=== PATIENT | male | born 1950 | race Caucasian/White ===

== ENCOUNTER → 2018-04-28 20:28 | Outpatient (CLI) | payer MEDICARE, OTHER, SELFPAY ==
[2018-04-29 08:21] LABS: Influenza A and B by PCR Rapid Negative (Negative)
== END ==
PROVIDERS: Family Provider Family Medicine; PCP Family Medicine; Visit Provider Physician Assistant
DX: R68.89 Other general symptoms and signs (principal)
CPT/HCPCS: 87400

== ENCOUNTER → 2018-05-01 09:00 | Outpatient (CLI) | payer MEDICARE, OTHER, SELFPAY ==
[2018-05-01 10:32] LABS: Microalbumi Creatinin Ratio Ur 8.4 ug/mg CR (<30); Microalbumin Urine Random < 0.6 mg/dL (0-1.6)
[2018-05-01 11:01] LABS: Hemoglobin A1C% w Est Avg Glu 7.8 % (4.0-6.0)
[2018-05-01 11:31] LABS: Alanine Aminotransferase 111 IU/L (21-72); Albumin 3.7 g/dL (3.5-5.0); Albumin Globulin Ratio 1.4 (1.0-2.8); Alkaline Phosphatase 85 U/L (38-126); Aspartate Aminotransferase 97 IU/L (17-59); BUN Creatinine Ratio 17.8 (6-22); Bilirubin Total 0.7 mg/dL (0.2-1.3); Blood Urea Nitrogen 16 mg/dL (9-20); Carbon Dioxide 31 mmol/L (22-32); Chloride 101 mmol/L (98-107); Cholesterol 91 mg/dL (140-199); Estimated Glomerular Filt Rate > 60.0 mL/min (>60); Globulin 2.6 g/dL (1.7-4.1); Glucose 150 mg/dL (80-110); HDL Cholesterol 24 mg/dL (40-60); HEMOLYSIS < 15 (0-50); LDL Cholesterol Calculated 43 mg/dL (<100); Potassium 4.5 mmol/L (3.4-5.1); Sodium 141 mmol/L (137-145); Total Protein 6.3 g/dL (6.3-8.2); Triglycerides 121 mg/dL (35-150)
== END ==
PROVIDERS: Visit Provider Internal Medicine Endocrinology, Diabetes & Metabolism
DX: M79.672 Pain in left foot (principal); I10 Essential (primary) hypertension; E78.2 Mixed hyperlipidemia; E11.9 Type 2 diabetes mellitus without complications; R94.5 Abnormal results of liver function studies
CPT/HCPCS: 36415; 80053; 80061; 82043; 82570; 83036

== ENCOUNTER → 2018-05-31 09:13 | Outpatient (CLI) | payer MEDICARE, OTHER, SELFPAY ==
[2018-05-31 10:13] LABS: Alanine Aminotransferase 34 IU/L (21-72); Albumin 4.1 g/dL (3.5-5.0); Albumin Globulin Ratio 1.6 (1.0-2.8); Alkaline Phosphatase 65 U/L (38-126); Aspartate Aminotransferase 28 IU/L (17-59); Bilirubin Total 0.6 mg/dL (0.2-1.3); Bilirubin Unconjugated 0.5 mg/dL (0.0-1.1); Estimated Glomerular Filt Rate > 60.0 mL/min (>60); Globulin 2.5 g/dL (1.7-4.1); HEMOLYSIS < 15 (0-50); Total Protein 6.6 g/dL (6.3-8.2)
== END ==
PROVIDERS: Visit Provider Internal Medicine Endocrinology, Diabetes & Metabolism
DX: I10 Essential (primary) hypertension (principal); R94.5 Abnormal results of liver function studies
CPT/HCPCS: 36415; 80076; 82565

== ENCOUNTER → 2018-08-24 09:15 | Outpatient (CLI) | payer MEDICARE, OTHER, SELFPAY ==
[2018-08-24 10:04] LABS: Hemoglobin A1C% w Est Avg Glu 7.1 % (4.0-6.0)
[2018-08-24 10:23] LABS: Alanine Aminotransferase 45 IU/L (21-72); Albumin 4.3 g/dL (3.5-5.0); Albumin Globulin Ratio 1.4 (1.0-2.8); Alkaline Phosphatase 64 U/L (38-126); Aspartate Aminotransferase 32 IU/L (17-59); Bilirubin Total 0.7 mg/dL (0.2-1.3); Blood Urea Nitrogen 21 mg/dL (9-20); Calcium 9.6 mg/dL (8.4-10.2); Carbon Dioxide 29 mmol/L (22-32); Chloride 102 mmol/L (98-107); Cholesterol 117 mg/dL (140-199); Estimated Glomerular Filt Rate > 60.0 mL/min (>60); Glucose 133 mg/dL (80-110); HDL Cholesterol 30 mg/dL (40-60); HEMOLYSIS < 15 (0-50); LDL Cholesterol Calculated 70 mg/dL (<100); Potassium 4.5 mmol/L (3.4-5.1); Sodium 140 mmol/L (137-145); Total Protein 7.3 g/dL (6.3-8.2); Triglycerides 84 mg/dL (35-150)
[2018-08-24 11:28] LABS: Microalbumi Creatinin Ratio Ur 5.4 ug/mg CR (<30); Microalbumin Urine Random < 0.6 mg/dL (0-1.6)
== END ==
PROVIDERS: PCP Student in an Organized Health Care Education/Training Program; Visit Provider Internal Medicine Endocrinology, Diabetes & Metabolism
DX: I10 Essential (primary) hypertension (principal); E78.2 Mixed hyperlipidemia; E11.9 Type 2 diabetes mellitus without complications; E88.81 Metabolic syndrome and other insulin resistance; R94.5 Abnormal results of liver function studies
CPT/HCPCS: 36415; 80053; 80061; 82043; 82570; 83036

== ENCOUNTER → 2018-12-27 08:58 | Outpatient (CLI) | payer MEDICARE, OTHER, SELFPAY ==
[2018-12-27 10:35] LABS: Creatinine Urine Random 117.6 mg/dL
[2018-12-27 10:39] LABS: Microalbumi Creatinin Ratio Ur 5.1 ug/mg CR (<30); Microalbumin Urine Random < 0.6 mg/dL (0-1.6)
[2018-12-27 11:21] LABS: Alanine Aminotransferase 26 IU/L (21-72); Albumin Globulin Ratio 1.4 (1.0-2.8); Alkaline Phosphatase 75 U/L (38-126); Aspartate Aminotransferase 24 IU/L (17-59); BUN Creatinine Ratio 25.6 (6-22); Bilirubin Total 0.7 mg/dL (0.2-1.3); Blood Urea Nitrogen 23 mg/dL (9-20); Calcium 9.3 mg/dL (8.4-10.2); Carbon Dioxide 28 mmol/L (22-32); Chloride 103 mmol/L (98-107); Cholesterol 115 mg/dL (140-199); Estimated Glomerular Filt Rate > 60.0 mL/min (>60); Globulin 2.9 g/dL (1.7-4.1); Glucose 125 mg/dL (80-110); HDL Cholesterol 27 mg/dL (40-60); HEMOLYSIS < 15 (0-50); LDL Cholesterol Calculated 66 mg/dL (<100); Potassium 4.5 mmol/L (3.4-5.1); Sodium 139 mmol/L (137-145); Total Protein 6.9 g/dL (6.3-8.2); Triglycerides 111 mg/dL (35-150)
[2018-12-27 11:22] LABS: Hemoglobin A1C% w Est Avg Glu 6.7 % (4.0-6.0)
== END ==
PROVIDERS: PCP Student in an Organized Health Care Education/Training Program; Visit Provider Internal Medicine Endocrinology, Diabetes & Metabolism
DX: I10 Essential (primary) hypertension (principal); E88.81 Metabolic syndrome and other insulin resistance; E11.9 Type 2 diabetes mellitus without complications; E78.2 Mixed hyperlipidemia
CPT/HCPCS: 36415; 80053; 80061; 82043; 82570; 83036

== ENCOUNTER → 2019-04-17 09:00 | Outpatient (CLI) | payer MEDICARE, OTHER, SELFPAY ==
[2019-04-17 09:54] LABS: Hemoglobin A1C% w Est Avg Glu 6.8 % (4.0-6.0)
[2019-04-17 10:51] LABS: Appearance Urine UA CLEAR; Bilirubin Urine UA NEGATIVE (NEGATIVE); Color Urine UA YELLOW; Glucose Urine UA 3+ g/dL (Negative); Ketones Urine UA NEGATIVE (NEGATIVE); Leukocyte Esterase Urine UA NEGATIVE (NEGATIVE); Nitrite Urine UA NEGATIVE (Negative); Occult Blood Urine UA NEGATIVE (Negative); Protein Urine UA NEGATIVE (Negative); Specific Gravity Urine UA 1.015 (1.000-1.035); Urobilinogen Urine UA 0.2 E.U./dL (0.2)
[2019-04-17 10:55] LABS: Alanine Aminotransferase 40 IU/L (21-72); Albumin Globulin Ratio 1.6 (1.0-2.8); Alkaline Phosphatase 80 U/L (38-126); Aspartate Aminotransferase 31 IU/L (17-59); Bilirubin Total 0.7 mg/dL (0.2-1.3); Blood Urea Nitrogen 19 mg/dL (9-20); Calcium 9.5 mg/dL (8.4-10.2); Carbon Dioxide 29 mmol/L (22-32); Chloride 101 mmol/L (98-107); Cholesterol 104 mg/dL (140-199); Estimated Glomerular Filt Rate > 60.0 mL/min (>60); Globulin 2.5 g/dL (1.7-4.1); Glucose 139 mg/dL (80-110); HDL Cholesterol 27 mg/dL (40-60); HEMOLYSIS < 15 (0-50); LDL Cholesterol Calculated 61 mg/dL (<100); Potassium 4.2 mmol/L (3.4-5.1); Sodium 138 mmol/L (137-145); Total Protein 6.5 g/dL (6.3-8.2); Triglycerides 82 mg/dL (35-150); VLDL Cholesterol Calculated 16 mg/dL (2-30)
[2019-04-17 11:19] LABS: Bacteria Urine Few (2-10); RBC Urine 0-1/HPF (0-5/HPF); WBC Urine 0-1/HPF (0-5/HPF)
== END ==
PROVIDERS: PCP Student in an Organized Health Care Education/Training Program; Visit Provider Internal Medicine Endocrinology, Diabetes & Metabolism
DX: I10 Essential (primary) hypertension (principal); E11.9 Type 2 diabetes mellitus without complications
CPT/HCPCS: 36415; 80053; 80061; 81001; 83036

== ENCOUNTER → 2019-08-16 10:43 | Outpatient (CLI) | payer MEDICARE, OTHER, SELFPAY ==
[2019-08-16 13:10] LABS: Prostate Specific Antigen Scrn 3.04 ng/mL (0.1-4.0)
== END ==
PROVIDERS: PCP Student in an Organized Health Care Education/Training Program; Visit Provider Student in an Organized Health Care Education/Training Program
DX: Z12.5 Encounter for screening for malignant neoplasm of prostate (principal)
CPT/HCPCS: 36415; G0103

== ENCOUNTER → 2019-08-20 09:16 | Outpatient (CLI) | payer MEDICARE, OTHER, SELFPAY ==
[2019-08-20 10:30] LABS: Hemoglobin A1C% w Est Avg Glu 7.4 % (4.0-6.0)
[2019-08-20 10:38] LABS: Alanine Aminotransferase 29 IU/L (<50); Albumin 4.3 g/dL (3.5-5.0); Albumin Globulin Ratio 1.4 (1.0-2.8); Alkaline Phosphatase 77 U/L (38-126); Aspartate Aminotransferase 31 IU/L (17-59); Bilirubin Total 0.7 mg/dL (0.2-1.3); Blood Urea Nitrogen 18 mg/dL (9-20); Calcium 9.6 mg/dL (8.4-10.2); Carbon Dioxide 30 mmol/L (22-32); Chloride 102 mmol/L (98-107); Cholesterol 121 mg/dL (140-199); Estimated Glomerular Filt Rate > 60.0 mL/min (>60); Glucose 137 mg/dL (80-110); HDL Cholesterol 25 mg/dL (40-60); HEMOLYSIS < 15 (0-50); LDL Cholesterol Calculated 71 mg/dL (<100); Potassium 4.6 mmol/L (3.4-5.1); Sodium 140 mmol/L (137-145); Total Protein 7.3 g/dL (6.3-8.2); Triglycerides 124 mg/dL (35-150)
[2019-08-20 11:27] LABS: Creatinine Urine Random 42.6 mg/dL
[2019-08-20 11:40] LABS: Microalbumin Urine Random < 0.6 mg/dL (0-1.6)
== END ==
PROVIDERS: PCP Student in an Organized Health Care Education/Training Program; Referring Provider Internal Medicine Endocrinology, Diabetes & Metabolism; Visit Provider Internal Medicine Endocrinology, Diabetes & Metabolism
DX: I10 Essential (primary) hypertension (principal); E78.2 Mixed hyperlipidemia; E11.9 Type 2 diabetes mellitus without complications; E88.81 Metabolic syndrome and other insulin resistance; R94.5 Abnormal results of liver function studies
CPT/HCPCS: 36415; 80053; 80061; 82043; 82570; 83036

== ENCOUNTER → 2019-12-24 09:36 | Outpatient (CLI) | payer MEDICARE, OTHER, SELFPAY ==
[2019-12-24 11:05] LABS: Alanine Aminotransferase 32 IU/L (<50); Albumin 4.2 g/dL (3.5-5.0); Albumin Globulin Ratio 1.4 (1.0-2.8); Alkaline Phosphatase 86 U/L (38-126); Aspartate Aminotransferase 29 IU/L (17-59); BUN Creatinine Ratio 20.2 (6-22); Bilirubin Total 0.6 mg/dL (0.2-1.3); Blood Urea Nitrogen 20 mg/dL (9-20); Calcium 9.6 mg/dL (8.4-10.2); Carbon Dioxide 28 mmol/L (22-32); Chloride 104 mmol/L (98-107); Cholesterol 110 mg/dL (140-199); Estimated Glomerular Filt Rate > 60.0 mL/min (>60); Globulin 2.9 g/dL (1.7-4.1); Glucose 142 mg/dL (80-110); HDL Cholesterol 23 mg/dL (40-60); HEMOLYSIS < 15 (0-50); LDL Cholesterol Calculated 61 mg/dL (<100); Potassium 4.7 mmol/L (3.4-5.1); Sodium 139 mmol/L (137-145); Total Protein 7.1 g/dL (6.3-8.2); Triglycerides 129 mg/dL (35-150); VLDL Cholesterol Calculated 26 mg/dL (2-30)
[2019-12-24 11:10] LABS: Creatinine Urine Random 103.4 mg/dL
[2019-12-24 11:17] LABS: Microalbumi Creatinin Ratio Ur 5.8 ug/mg CR (<30); Microalbumin Urine Random < 0.6 mg/dL (0-1.6)
[2019-12-24 11:18] LABS: Hemoglobin A1C% w Est Avg Glu 7.5 % (4.0-6.0)
== END ==
PROVIDERS: PCP Student in an Organized Health Care Education/Training Program; Referring Provider Internal Medicine Endocrinology, Diabetes & Metabolism; Visit Provider Internal Medicine Endocrinology, Diabetes & Metabolism
DX: I10 Essential (primary) hypertension (principal); E78.2 Mixed hyperlipidemia; E11.9 Type 2 diabetes mellitus without complications; E88.81 Metabolic syndrome and other insulin resistance; R94.5 Abnormal results of liver function studies
CPT/HCPCS: 36415; 80053; 80061; 82043; 82570; 83036

== ENCOUNTER → 2020-04-28 09:04 | Outpatient (CLI) | payer MEDICARE, OTHER, SELFPAY ==
[2020-04-28 09:49] LABS: Hemoglobin A1C% w Est Avg Glu 7.2 % (4.0-6.0)
[2020-04-28 09:53] LABS: Alanine Aminotransferase 32 IU/L (<50); Albumin Globulin Ratio 1.5 (1.0-2.8); Alkaline Phosphatase 79 U/L (38-126); Aspartate Aminotransferase 29 IU/L (17-59); BUN Creatinine Ratio 22.2 (6-22); Bilirubin Total 0.7 mg/dL (0.2-1.3); Blood Urea Nitrogen 22 mg/dL (9-20); Calcium 9.4 mg/dL (8.4-10.2); Carbon Dioxide 31 mmol/L (22-32); Chloride 103 mmol/L (98-107); Cholesterol 116 mg/dL (140-199); Estimated Glomerular Filt Rate > 60.0 mL/min (>60); Globulin 2.7 g/dL (1.7-4.1); Glucose 133 mg/dL (80-110); HDL Cholesterol 30 mg/dL (40-60); HEMOLYSIS < 15 (0-50); LDL Cholesterol Calculated 61 mg/dL (<100); Potassium 4.8 mmol/L (3.4-5.1); Sodium 139 mmol/L (137-145); Total Protein 6.7 g/dL (6.3-8.2); Triglycerides 124 mg/dL (35-150)
[2020-04-28 10:53] LABS: Creatinine Urine Random 74.7 mg/dL
[2020-04-28 11:04] LABS: Microalbumin Urine Random < 0.6 mg/dL (0-1.6)
== END ==
PROVIDERS: PCP Student in an Organized Health Care Education/Training Program; Referring Provider Internal Medicine Endocrinology, Diabetes & Metabolism; Visit Provider Internal Medicine Endocrinology, Diabetes & Metabolism
DX: E11.9 Type 2 diabetes mellitus without complications (principal); E78.2 Mixed hyperlipidemia; I10 Essential (primary) hypertension
CPT/HCPCS: 36415; 80053; 80061; 82043; 82570; 83036

== ENCOUNTER → 2020-09-02 09:26 | Outpatient (CLI) | payer MEDICARE, OTHER, SELFPAY ==
[2020-09-02 10:17] LABS: Hemoglobin A1C% w Est Avg Glu 7.6 % (4.0-6.0)
[2020-09-02 10:57] LABS: Creatinine Urine Random 74.1 mg/dL
[2020-09-02 11:01] LABS: Microalbumin Urine Random < 0.6 mg/dL (0-1.6)
[2020-09-02 11:03] LABS: Alanine Aminotransferase 32 IU/L (<50); Albumin Globulin Ratio 1.4 (1.0-2.8); Alkaline Phosphatase 84 U/L (38-126); Aspartate Aminotransferase 29 IU/L (17-59); BUN Creatinine Ratio 20.6 (6-22); Bilirubin Total 0.5 mg/dL (0.2-1.3); Blood Urea Nitrogen 20 mg/dL (9-20); Calcium 9.2 mg/dL (8.4-10.2); Carbon Dioxide 30 mmol/L (22-32); Chloride 103 mmol/L (98-107); Cholesterol 117 mg/dL (140-199); Estimated Glomerular Filt Rate > 60.0 mL/min (>60); Globulin 2.8 g/dL (1.7-4.1); Glucose 145 mg/dL (80-110); HDL Cholesterol 29 mg/dL (40-60); HEMOLYSIS < 15 (0-50); LDL Cholesterol Calculated 68 mg/dL (<100); Potassium 4.5 mmol/L (3.4-5.1); Sodium 138 mmol/L (137-145); Total Protein 6.8 g/dL (6.3-8.2); Triglycerides 102 mg/dL (35-150)
== END ==
PROVIDERS: PCP Student in an Organized Health Care Education/Training Program; Referring Provider Internal Medicine Endocrinology, Diabetes & Metabolism; Visit Provider Internal Medicine Endocrinology, Diabetes & Metabolism
DX: I10 Essential (primary) hypertension (principal); E78.2 Mixed hyperlipidemia; E88.81 Metabolic syndrome and other insulin resistance; R94.5 Abnormal results of liver function studies; E11.40 Type 2 diabetes mellitus with diabetic neuropathy, unspecified
CPT/HCPCS: 36415; 80053; 80061; 82043; 82570; 83036

== ENCOUNTER → 2020-12-29 09:28 | Outpatient (CLI) | payer MEDICARE, OTHER, SELFPAY ==
[2020-12-29 11:24] LABS: Hemoglobin A1C% w Est Avg Glu 6.9 % (4.0-6.0)
[2020-12-29 11:46] LABS: Alanine Aminotransferase 32 IU/L (<50); Albumin 3.7 g/dL (3.5-5.0); Albumin Globulin Ratio 1.4 (1.0-2.8); Alkaline Phosphatase 79 U/L (38-126); Aspartate Aminotransferase 28 IU/L (17-59); BUN Creatinine Ratio 20.6 (6-22); Bilirubin Total 0.6 mg/dL (0.2-1.3); Blood Urea Nitrogen 20 mg/dL (9-20); Calcium 9.4 mg/dL (8.4-10.2); Carbon Dioxide 26 mmol/L (22-32); Chloride 103 mmol/L (98-107); Cholesterol 119 mg/dL (140-199); Estimated Glomerular Filt Rate > 60.0 mL/min (>60); Globulin 2.7 g/dL (1.7-4.1); Glucose 106 mg/dL (80-110); HDL Cholesterol 27 mg/dL (40-60); HEMOLYSIS < 15 (0-50); LDL Cholesterol Calculated 62 mg/dL (<100); Potassium 4.4 mmol/L (3.4-5.1); Sodium 137 mmol/L (137-145); Total Protein 6.4 g/dL (6.3-8.2); Triglycerides 152 mg/dL (35-150); VLDL Cholesterol Calculated 30 mg/dL (2-30)
[2020-12-29 11:50] LABS: Creatinine Urine Random 81.8 mg/dL
[2020-12-29 12:05] LABS: Microalbumin Urine Random < 0.6 mg/dL (0-1.6)
== END ==
PROVIDERS: PCP Student in an Organized Health Care Education/Training Program; Referring Provider Internal Medicine Endocrinology, Diabetes & Metabolism; Visit Provider Internal Medicine Endocrinology, Diabetes & Metabolism
DX: E78.2 Mixed hyperlipidemia (principal); E11.40 Type 2 diabetes mellitus with diabetic neuropathy, unspecified; I11.0 Hypertensive heart disease with heart failure; E88.81 Metabolic syndrome and other insulin resistance; R94.5 Abnormal results of liver function studies
CPT/HCPCS: 36415; 80053; 80061; 82043; 82570; 83036

== ENCOUNTER → 2021-01-14 13:56 | Outpatient (CLI) | payer MEDICARE, OTHER, SELFPAY ==
[2021-01-14 16:45] LABS: Prostate Specific Antigen Scrn 2.43 ng/mL (0.1-4.0)
== END ==
PROVIDERS: PCP Student in an Organized Health Care Education/Training Program; Referring Provider Student in an Organized Health Care Education/Training Program; Visit Provider Student in an Organized Health Care Education/Training Program
DX: Z12.5 Encounter for screening for malignant neoplasm of prostate (principal)
CPT/HCPCS: 36415; G0103

== ENCOUNTER → 2021-05-12 09:18 | Outpatient (CLI) | payer MEDICARE, OTHER, SELFPAY ==
[2021-05-12 10:05] LABS: Hemoglobin A1C% w Est Avg Glu 6.4 % (4.0-6.0)
[2021-05-12 10:18] LABS: Alanine Aminotransferase 34 IU/L (<50); Albumin Globulin Ratio 1.6 (1.0-2.8); Alkaline Phosphatase 73 U/L (38-126); Aspartate Aminotransferase 30 IU/L (17-59); BUN Creatinine Ratio 18.6 (6-22); Bilirubin Total 0.7 mg/dL (0.2-1.3); Blood Urea Nitrogen 19 mg/dL (9-20); Calcium 9.4 mg/dL (8.4-10.2); Carbon Dioxide 28 mmol/L (22-32); Chloride 104 mmol/L (98-107); Cholesterol 119 mg/dL (140-199); Estimated Glomerular Filt Rate > 60.0 mL/min (>60); Globulin 2.5 g/dL (1.7-4.1); Glucose 123 mg/dL (80-110); HDL Cholesterol 29 mg/dL (40-60); HEMOLYSIS < 15 (0-50); LDL Cholesterol Calculated 70 mg/dL (<100); Potassium 4.7 mmol/L (3.4-5.1); Sodium 139 mmol/L (137-145); Total Protein 6.5 g/dL (6.3-8.2); Triglycerides 101 mg/dL (35-150)
[2021-05-12 18:06] LABS: Microalbumin Urine Random < 0.6 mg/dL (0-1.6)
== END ==
PROVIDERS: PCP Student in an Organized Health Care Education/Training Program; Referring Provider Internal Medicine Endocrinology, Diabetes & Metabolism; Visit Provider Internal Medicine Endocrinology, Diabetes & Metabolism
DX: E11.9 Type 2 diabetes mellitus without complications (principal); E78.2 Mixed hyperlipidemia; I10 Essential (primary) hypertension; E88.81 Metabolic syndrome and other insulin resistance
CPT/HCPCS: 36415; 80053; 80061; 82043; 82570; 83036

== ENCOUNTER → 2021-12-21 08:46 | Outpatient (CLI) | payer MEDICARE, OTHER, SELFPAY ==
[2021-12-21 10:17] LABS: Creatinine Urine Random 78.8 mg/dL
[2021-12-21 10:23] LABS: Microalbumin Urine Random < 0.6 mg/dL (0-1.6)
[2021-12-21 10:35] LABS: Alanine Aminotransferase 29 IU/L (<50); Albumin 4.3 g/dL (3.5-5.0); Albumin Globulin Ratio 1.7 (1.0-2.8); Alkaline Phosphatase 94 U/L (38-126); Aspartate Aminotransferase 28 IU/L (17-59); BUN Creatinine Ratio 20.7 (6-22); Bilirubin Total 0.7 mg/dL (0.2-1.3); Blood Urea Nitrogen 19 mg/dL (9-20); Calcium 9.1 mg/dL (8.4-10.2); Carbon Dioxide 29 mmol/L (22-32); Chloride 102 mmol/L (98-107); Cholesterol 118 mg/dL (140-199); Estimated Glomerular Filt Rate > 60 mL/min (>60); Globulin 2.6 g/dL (1.7-4.1); Glucose 116 mg/dL (80-110); HDL Cholesterol 35 mg/dL (40-60); HEMOLYSIS < 15 (0-50); Hemoglobin A1C% w Est Avg Glu 7.4 % (4.0-6.0); LDL Cholesterol Calculated 64 mg/dL (<100); Potassium 4.2 mmol/L (3.4-5.1); Sodium 139 mmol/L (137-145); Total Protein 6.9 g/dL (6.3-8.2); Triglycerides 96 mg/dL (35-150)
[2021-12-22 07:36] LABS: Fructosamine 294 umol/L (0-285)
== END ==
PROVIDERS: PCP Student in an Organized Health Care Education/Training Program; Referring Provider Internal Medicine Endocrinology, Diabetes & Metabolism; Visit Provider Internal Medicine Endocrinology, Diabetes & Metabolism
DX: E11.9 Type 2 diabetes mellitus without complications (principal); I10 Essential (primary) hypertension; E78.2 Mixed hyperlipidemia
CPT/HCPCS: 36415; 80053; 80061; 82043; 82570; 82985; 83036

== ENCOUNTER → 2022-03-01 13:43 | Outpatient (CLI) | payer MEDICARE, OTHER, SELFPAY ==
--- NOTE | 2022-03-01 13:45 | DI.MRI.S_ITS ---
PROCEDURE: MR FOOT RT WO CON INDICATIONS: RIGHT FOOT PAIN/STRESS FRACTURE TECHNIQUE: Noncontrast sagittal T1 spin echo and T2 fast spin echo with fat saturation, long-axis T1 spin echo and T2 fast spin echo with fat saturation, short-axis T1 spin echo and T2 fast spin echo with fat saturation through the forefoot. 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 FINDINGS: Image quality: Excellent. Bones and joints: Moderate osseous edema is seen in the 3rd metatarsal head and neck. There is focal subchondral hypointensity at the 3rd metatarsal head articular surface that is suspicious for an impaction or insufficiency fracture. Postsurgical changes are seen with prosthetic device at the 1st metatarsal head. Severe degenerative changes are seen at the 1st metatarsophalangeal joint with subchondral cystic changes and subchondral edema as well as marginal osteophyte formation. Metatarsal sesamoid degenerative changes are also seen. Mild scattered degenerative changes are seen at the interphalangeal joints of the toes. Mild subchondral cystic changes are seen at the talar head. Soft tissues: Soft tissue edema is seen surrounding the distal 3rd metatarsal. The visualized plantar foot muscles demonstrate mild diffuse grade 2 fatty infiltration. Visualized flexor and extensor tendons appear intact, without tenosynovitis. The distal insertions of the peroneus brevis and longus tendons appear intact. The principal Lisfranc ligament appears intact. No soft tissue ganglion cysts or bursal fluid collections. Sagittal images demonstrate no evidence for plantar plate tears. IMPRESSION: 1. Moderate osseous edema within the distal 3rd metatarsal with focal subchondral hypointensity is suspicious for a recent impaction or insufficiency subchondral fracture. Acute stress reaction could appear similarly. Surrounding soft tissue edema is present. 2. Postsurgical changes at the 1st metatarsophalangeal joint superimposed on severe degenerative changes. Mild metatarsosesamoid osteoarthrosis. Dictated by: Bill Gauthier M.D. on 03/01/2022 at 16:17 Approved by: Bill Gauthier M.D. on 03/01/2022 at 16:25
== END ==
PROVIDERS: PCP Student in an Organized Health Care Education/Training Program; Referring Provider Orthopaedic Surgery Foot and Ankle Surgery; Visit Provider Orthopaedic Surgery Foot and Ankle Surgery
DX: M19.071 Primary osteoarthritis, right ankle and foot (principal); M79.671 Pain in right foot; R60.0 Localized edema
CPT/HCPCS: 73718

== ENCOUNTER → 2022-04-16 10:56 | Outpatient (CLI) | payer MEDICARE, OTHER, SELFPAY ==
--- NOTE | 2022-04-16 | DI.MRI.S_ITS ---
PROCEDURE: MR KNEE LT WO CON INDICATIONS: LEFT KNEE PAIN TECHNIQUE: Noncontrast sagittal PD fast spin echo and T2 fast spin echo with fat saturation, sagittal 3-D FLASH with fat saturation; coronal T1 spin echo and PD fast spin echo with fat saturation, and axial PD fast spin echo with fat saturation through the knee. COMPARISON: None. FINDINGS: Image quality: Excellent. Menisci: Complex oblique tear involving posterior horn of medial meniscus is seen extending to both superior and inferior articulating surfaces. Lateral meniscus is intact. The meniscal root ligaments appear intact. Cruciate ligaments: The anterior and posterior cruciate ligaments appear intact. Medial structures: Low grade MCL sprain/partial-thickness tear is seen. The posterior oblique ligament, semimembranosus tendon insertions, oblique popliteal ligament, and meniscocapsular junction appear intact. Visualized portions of the pes anserinus tendons appear normal. No abnormal bursal fluid. Lateral structures: The lateral collateral ligament, long and short heads of the biceps femoris tendon appear intact. The popliteus tendon appears normal. Iliotibial band appears normal. Anterior structures: The quadriceps and patellar tendons appear intact. Patellar alignment is normal. No femoral trochlear dysplasia or ventral trochlear prominence. No edema in the infrapatellar fat pad. Bones and cartilage: Marrow edema involving medial periphery of medial femoral condyle weight-bearing portion is seen without discrete fracture line. Mild edema involving anterior and medial periphery of medial tibial plateau is also noted without discrete fracture line. 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 Joint space: There is trace knee joint fluid. There is a small Finnegan's cyst. Normal appearing synovial plicae are incidentally noted. IMPRESSION: 1. Complex oblique tear involving posterior horn of medial meniscus extending to both superior and inferior articulating surfaces. No focal lateral meniscal tear. 2. Cruciate ligaments are intact. Low-grade MCL sprain/partial-thickness tear. 3. Mild bony contusion involving medial periphery of medial femoral condyle weight-bearing portion and antral medial periphery of medial tibial plateau. No fracture or dislocation. 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 4. Trace amount of joint effusion and a small popliteal cyst. Dictated by: Mj Monet M.D. on 04/16/2022 at 14:21 Approved by: Mj Monet M.D. on 04/16/2022 at 14:34
== END ==
PROVIDERS: PCP Student in an Organized Health Care Education/Training Program; Referring Provider Orthopaedic Surgery Foot and Ankle Surgery; Visit Provider Orthopaedic Surgery Foot and Ankle Surgery
DX: S83.232A Complex tear of medial meniscus, current injury, left knee, initial encounter (principal); S83.412A Sprain of medial collateral ligament of left knee, initial encounter; M17.12 Unilateral primary osteoarthritis, left knee; M94.262 Chondromalacia, left knee; M71.22 Synovial cyst of popliteal space [Baker], left knee
CPT/HCPCS: 73721

== ENCOUNTER → 2022-04-26 08:59 | Outpatient (CLI) | payer MEDICARE, OTHER, SELFPAY ==
[2022-04-26 13:39] LABS: Add Manual Diff / Slide Review NO; Basophils Absolute Auto 0 /uL (0-100); Basophils Percent Auto 0.4 % (0-2); Eosinophils Absolute Auto 100 /uL (0-450); Eosinophils Percent Auto 2.8 % (2-4); Hematocrit 41.9 % (41-53); Hemoglobin 14.1 g/dL (13.5-17.5); Lymphocytes Absolute Auto 1300 /uL (1100-4500); Mean Corpuscular HGB Conc 33.7 % (30-36); Mean Corpuscular Hemoglobin 30.5 PG (26-34); Mean Corpuscular Volume 90.6 fL (80-100); Monocytes Absolute Auto 500 /uL (0-900); Neutrophils Absolute Auto 2200 /uL (1500-7000); Neutrophils Percent Auto 51.8 % (50-75); Platelet Count 131 X10^3/uL (150-400); Red Blood Cell Count 4.62 X10^6/uL (4.5-5.9); Red Cell Distribution Width 13.6 % (11.6-14.8); White Blood Cell Count 4.2 X10^3/uL (4.5-11.0)
[2022-04-26 14:11] LABS: Alanine Aminotransferase 25 IU/L (<50); Albumin 4.1 g/dL (3.5-5.0); Albumin Globulin Ratio 1.3 (1.0-2.8); Alkaline Phosphatase 85 U/L (38-126); Aspartate Aminotransferase 25 IU/L (17-59); BUN Creatinine Ratio 22.1 (6-22); Bilirubin Total 0.6 mg/dL (0.2-1.3); Blood Urea Nitrogen 23 mg/dL (9-20); Calcium 9.4 mg/dL (8.4-10.2); Carbon Dioxide 28 mmol/L (22-32); Chloride 103 mmol/L (98-107); Estimated Glomerular Filt Rate > 60 mL/min (>60); Globulin 3.1 g/dL (1.7-4.1); Glucose 112 mg/dL (80-110); HEMOLYSIS < 15 (0-50); Potassium 4.1 mmol/L (3.4-5.1); Sodium 142 mmol/L (137-145); Total Protein 7.2 g/dL (6.3-8.2)
== END ==
PROVIDERS: PCP Student in an Organized Health Care Education/Training Program; Referring Provider Orthopaedic Surgery Foot and Ankle Surgery; Visit Provider Orthopaedic Surgery Foot and Ankle Surgery
DX: Z01.818 Encounter for other preprocedural examination (principal); Z01.812 Encounter for preprocedural laboratory examination
CPT/HCPCS: 36415; 80053; 85025; 93005; 93010

== ENCOUNTER → 2022-08-05 09:20 | Outpatient (CLI) | payer MEDICARE, OTHER, SELFPAY ==
[2022-08-05 10:29] LABS: Creatinine Urine Random 93.8 mg/dL
[2022-08-05 10:35] LABS: Microalbumin Urine Random < 0.6 mg/dL (0-1.6)
[2022-08-05 11:43] LABS: Hemoglobin A1C% w Est Avg Glu 7.3 % (4.0-6.0)
[2022-08-05 12:30] LABS: BUN Creatinine Ratio 18.9 (6-22); Blood Urea Nitrogen 18 mg/dL (9-20); Calcium 9.1 mg/dL (8.4-10.2); Carbon Dioxide 29 mmol/L (22-32); Chloride 102 mmol/L (98-107); Cholesterol 122 mg/dL (140-199); Estimated Glomerular Filt Rate > 60 mL/min (>60); Glucose 119 mg/dL (80-110); HDL Cholesterol 28 mg/dL (40-60); HEMOLYSIS < 15 (0-50); LDL Cholesterol Calculated 70 mg/dL (<100); Phosphorous 3.5 mg/dL (2.3-3.7); Potassium 4.3 mmol/L (3.4-5.1); Sodium 139 mmol/L (137-145); Triglycerides 118 mg/dL (35-150)
[2022-08-06 17:15] LABS: Albumin 4.2 g/dL (3.5-5.0)
== END ==
PROVIDERS: PCP Student in an Organized Health Care Education/Training Program; Referring Provider Student in an Organized Health Care Education/Training Program; Visit Provider Student in an Organized Health Care Education/Training Program
DX: E11.9 Type 2 diabetes mellitus without complications (principal)
CPT/HCPCS: 36415; 80061; 80069; 82043; 82570; 83036

== ENCOUNTER → 2023-02-22 09:04 | Outpatient (CLI) | payer MEDICARE, OTHER, SELFPAY ==
[2023-02-22 11:48] LABS: BUN Creatinine Ratio 23.9 (6-22); Blood Urea Nitrogen 22 mg/dL (9-20); Calcium 9.1 mg/dL (8.4-10.2); Carbon Dioxide 28 mmol/L (22-32); Chloride 101 mmol/L (98-107); Cholesterol 111 mg/dL (140-199); Estimated Glomerular Filt Rate > 60 mL/min (>60); Glucose 120 mg/dL (80-110); HDL Cholesterol 32 mg/dL (40-60); HEMOLYSIS < 15 (0-50); LDL Cholesterol Calculated 62 mg/dL (<100); Phosphorous 3.8 mg/dL (2.3-3.7); Potassium 4.3 mmol/L (3.4-5.1); Sodium 137 mmol/L (137-145); Triglycerides 85 mg/dL (35-150)
[2023-02-22 12:11] LABS: Creatinine Urine Random 77.6 mg/dL
[2023-02-22 12:26] LABS: Microalbumin Urine Random < 0.6 mg/dL (0-1.6)
[2023-02-23 03:36] LABS: Labcorp Hemoglobin (Hb) A1c 7.3 % (4.8-5.6)
== END ==
PROVIDERS: PCP Student in an Organized Health Care Education/Training Program; Referring Provider Student in an Organized Health Care Education/Training Program; Visit Provider Student in an Organized Health Care Education/Training Program
DX: E11.9 Type 2 diabetes mellitus without complications (principal)
CPT/HCPCS: 36415; 80061; 80069; 82043; 82570; 83036

== ENCOUNTER → 2023-06-15 14:12 | Outpatient (CLI) | payer MEDICARE, OTHER, SELFPAY ==
[2023-06-15 15:44] LABS: Hemoglobin A1C% w Est Avg Glu 7.3 % (4.0-6.0)
[2023-06-15 16:03] LABS: Blood Urea Nitrogen 22 mg/dL (9-20); Calcium 9.7 mg/dL (8.4-10.2); Carbon Dioxide 26 mmol/L (22-32); Chloride 105 mmol/L (98-107); Estimated Glomerular Filt Rate > 60 mL/min (>60); Glucose 122 mg/dL (80-110); HEMOLYSIS < 15 (0-50); Potassium 4.3 mmol/L (3.4-5.1); Sodium 138 mmol/L (137-145)
[2023-06-15 16:31] LABS: Prostate Specific Antigen 3.62 ng/mL (0.10-4.00)
== END ==
PROVIDERS: PCP Internal Medicine; Referring Provider Internal Medicine; Visit Provider Internal Medicine
DX: E11.69 Type 2 diabetes mellitus with other specified complication (principal); N40.1 Benign prostatic hyperplasia with lower urinary tract symptoms; E78.5 Hyperlipidemia, unspecified; N13.8 Other obstructive and reflux uropathy
CPT/HCPCS: 36415; 80048; 83036; 84153

== ENCOUNTER → 2023-09-22 12:57 | Outpatient (CLI) | payer MEDICARE, SELFPAY ==
[2023-09-22 14:51] LABS: Add Manual Diff / Slide Review NO; Basophils Absolute Auto 0 /uL (0-100); Basophils Percent Auto 0.4 % (0-2); Eosinophils Absolute Auto 100 /uL (0-450); Eosinophils Percent Auto 1.8 % (2-4); Hematocrit 43.8 % (41-53); Hemoglobin 14.9 g/dL (13.5-17.5); Lymphocytes Absolute Auto 1300 /uL (1100-4500); Lymphocytes Percent Auto 26.1 % (25-40); Mean Corpuscular HGB Conc 33.9 % (30-36); Mean Corpuscular Volume 91.5 fL (80-100); Monocytes Absolute Auto 500 /uL (0-900); Monocytes Percent Auto 10.9 % (3-14); Neutrophils Absolute Auto 3000 /uL (1500-7000); Neutrophils Percent Auto 60.8 % (50-75); Platelet Count 127 X10^3/uL (150-400); Red Blood Cell Count 4.79 X10^6/uL (4.5-5.9); White Blood Cell Count 4.9 X10^3/uL (4.5-11.0)
[2023-09-22 15:57] LABS: Alanine Aminotransferase 30 IU/L (<50); Albumin 4.2 g/dL (3.5-5.0); Albumin Globulin Ratio 1.4 (1.0-2.8); Alkaline Phosphatase 121 U/L (38-126); Aspartate Aminotransferase 26 IU/L (17-59); BUN Creatinine Ratio 18.6 (6-22); Bilirubin Direct 0.3 mg/dL (0.0-0.4); Bilirubin Total 0.7 mg/dL (0.2-1.3); Blood Urea Nitrogen 19 mg/dL (9-20); C-Reactive Protein Quant 0.6 mg/dL (<1.0); Calcium 9.4 mg/dL (8.4-10.2); Carbon Dioxide 28 mmol/L (22-32); Chloride 107 mmol/L (98-107); Estimated Glomerular Filt Rate > 60 mL/min (>60); Glucose 168 mg/dL (80-110); HEMOLYSIS 21 (0-50); Potassium 4.2 mmol/L (3.4-5.1); Sodium 142 mmol/L (137-145); Total Protein 7.2 g/dL (6.3-8.2)
[2023-09-29 17:49] LABS: Calprotectin, Stool 32 ug/g (0-120)
== END ==
PROVIDERS: PCP Internal Medicine; Referring Provider Internal Medicine Gastroenterology; Visit Provider Internal Medicine Gastroenterology
DX: K51.90 Ulcerative colitis, unspecified, without complications (principal)
CPT/HCPCS: 36415; 80053; 82248; 83993; 85025; 86140

== ENCOUNTER → 2023-10-18 08:19 | Outpatient (CLI) | payer MEDICARE, SELFPAY ==
[2023-10-18 09:19] LABS: Albumin 3.9 g/dL (3.5-5.0); BUN Creatinine Ratio 20.2 (6-22); Blood Urea Nitrogen 21 mg/dL (9-20); Calcium 9.7 mg/dL (8.4-10.2); Carbon Dioxide 31 mmol/L (22-32); Chloride 105 mmol/L (98-107); Cholesterol 114 mg/dL (140-199); Estimated Glomerular Filt Rate > 60 mL/min (>60); Glucose 115 mg/dL (80-110); HDL Cholesterol 35 mg/dL (40-60); HEMOLYSIS < 15 (0-50); LDL Cholesterol Calculated 61 mg/dL (<100); Phosphorous 3.8 mg/dL (2.3-3.7); Potassium 4.2 mmol/L (3.4-5.1); Sodium 139 mmol/L (137-145); Triglycerides 88 mg/dL (35-150)
[2023-10-18 10:52] LABS: Creatinine Urine Random 117.8 mg/dL
[2023-10-18 11:03] LABS: Microalbumin Urine Random < 0.6 mg/dL (0-1.6)
== END ==
PROVIDERS: PCP Internal Medicine; Referring Provider Student in an Organized Health Care Education/Training Program; Visit Provider Student in an Organized Health Care Education/Training Program
DX: E11.69 Type 2 diabetes mellitus with other specified complication (principal)
CPT/HCPCS: 36415; 80061; 80069; 82043; 82570

== ENCOUNTER → 2024-02-28 09:13 | Outpatient (CLI) | payer MEDICARE, SELFPAY ==
[2024-02-28 10:47] LABS: Hemoglobin A1C% w Est Avg Glu 6.4 % (4.0-6.0)
[2024-02-28 11:00] LABS: Albumin 3.8 g/dL (3.5-5.0); BUN Creatinine Ratio 21.5 (6-22); Blood Urea Nitrogen 20 mg/dL (9-20); Carbon Dioxide 26 mmol/L (22-32); Chloride 107 mmol/L (98-107); Cholesterol 105 mg/dL (140-199); Estimated Glomerular Filt Rate > 60 mL/min (>60); Glucose 113 mg/dL (80-110); HDL Cholesterol 37 mg/dL (40-60); HEMOLYSIS < 15 (0-50); LDL Cholesterol Calculated 55 mg/dL (<100); Phosphorous 3.5 mg/dL (2.3-3.7); Potassium 4.3 mmol/L (3.4-5.1); Sodium 138 mmol/L (137-145); Triglycerides 63 mg/dL (35-150)
[2024-02-28 11:47] LABS: Microalbumin Urine Random < 0.6 mg/dL (0-1.6)
== END ==
PROVIDERS: PCP Internal Medicine; Referring Provider Student in an Organized Health Care Education/Training Program; Visit Provider Student in an Organized Health Care Education/Training Program
DX: E11.69 Type 2 diabetes mellitus with other specified complication (principal)
CPT/HCPCS: 36415; 80061; 80069; 82043; 82570; 83036

== ENCOUNTER → 2024-08-22 08:38 | Outpatient (CLI) | payer MEDICARE, SELFPAY ==
[2024-08-22 09:16] LABS: Albumin 4.2 g/dL (3.5-5.0); BUN Creatinine Ratio 16.3 (6-22); Blood Urea Nitrogen 17 mg/dL (9-20); Calcium 9.4 mg/dL (8.4-10.2); Carbon Dioxide 28 mmol/L (22-32); Chloride 103 mmol/L (98-107); Cholesterol 112 mg/dL (140-199); Estimated Glomerular Filt Rate > 60 mL/min (>60); Glucose 137 mg/dL (80-110); HDL Cholesterol 38 mg/dL (40-60); HEMOLYSIS < 15 (0-50); LDL Cholesterol Calculated 58 mg/dL (<100); Phosphorous 3.7 mg/dL (2.3-3.7); Potassium 4.3 mmol/L (3.4-5.1); Sodium 138 mmol/L (137-145); Triglycerides 81 mg/dL (35-150)
[2024-08-22 10:20] LABS: Microalbumin Urine Random < 0.6 mg/dL (0-1.6)
== END ==
LOC: LAB 08:38
PROVIDERS: PCP Internal Medicine; Referring Provider Student in an Organized Health Care Education/Training Program; Visit Provider Student in an Organized Health Care Education/Training Program
DX: E11.69 Type 2 diabetes mellitus with other specified complication (principal)
CPT/HCPCS: 36415; 80061; 80069; 82043; 82570

== ENCOUNTER → 2024-09-05 10:04 | Outpatient (CLI) | payer MEDICARE, SELFPAY ==
[2024-09-05 11:42] LABS: Free T4, Direct Thyroxine 1.21 ng/dL (0.78-2.19)
[2024-09-05 11:56] LABS: Thyroid Stimulating Hormone 0.979 uIU/mL (0.47-4.68)
== END ==
PROVIDERS: PCP Internal Medicine; Referring Provider Student in an Organized Health Care Education/Training Program; Visit Provider Student in an Organized Health Care Education/Training Program
DX: E11.69 Type 2 diabetes mellitus with other specified complication (principal)
CPT/HCPCS: 36415; 84439; 84443

== ENCOUNTER → 2024-10-10 09:30 | Outpatient (CLI) | payer MEDICARE, SELFPAY ==
[2024-10-10 10:01] LABS: Add Manual Diff / Slide Review NO; Basophils Absolute Auto 0 /uL (0-100); Basophils Percent Auto 0.5 % (0-2); Eosinophils Absolute Auto 100 /uL (0-450); Hematocrit 42.6 % (41-53); Hemoglobin 14.4 g/dL (13.5-17.5); Lymphocytes Absolute Auto 1000 /uL (1100-4500); Lymphocytes Percent Auto 27.8 % (25-40); Mean Corpuscular HGB Conc 33.8 % (30-36); Mean Corpuscular Volume 91.5 fL (80-100); Monocytes Absolute Auto 400 /uL (0-900); Monocytes Percent Auto 11.1 % (3-14); Neutrophils Absolute Auto 2100 /uL (1500-7000); Neutrophils Percent Auto 57.6 % (50-75); Platelet Count 124 X10^3/uL (150-400); Red Blood Cell Count 4.65 X10^6/uL (4.5-5.9); Red Cell Distribution Width 13.7 % (11.6-14.8); White Blood Cell Count 3.6 X10^3/uL (4.5-11.0)
[2024-10-10 10:32] LABS: Alanine Aminotransferase 37 IU/L (<50); Albumin 4.3 g/dL (3.5-5.0); Albumin Globulin Ratio 1.8 (1.0-2.8); Alkaline Phosphatase 93 U/L (38-126); Aspartate Aminotransferase 34 IU/L (17-59); BUN Creatinine Ratio 17.8 (6-22); Bilirubin Total 0.8 mg/dL (0.2-1.3); Blood Urea Nitrogen 18 mg/dL (9-20); Calcium 9.7 mg/dL (8.4-10.2); Carbon Dioxide 25 mmol/L (22-32); Chloride 102 mmol/L (98-107); Estimated Glomerular Filt Rate > 60 mL/min (>60); Globulin 2.4 g/dL (1.7-4.1); Glucose 177 mg/dL (80-110); HEMOLYSIS < 15 (0-50); Potassium 4.3 mmol/L (3.4-5.1); Sodium 138 mmol/L (137-145); Total Protein 6.7 g/dL (6.3-8.2)
== END ==
LOC: LAB 09:33
PROVIDERS: PCP Internal Medicine; Referring Provider Internal Medicine Gastroenterology; Visit Provider Internal Medicine Gastroenterology
DX: K51.90 Ulcerative colitis, unspecified, without complications (principal); Z86.0100 Personal history of colon polyps, unspecified
CPT/HCPCS: 36415; 80053; 85025

== ENCOUNTER 2024-11-10 17:04 | Emergency (ER) | payer MEDICARE, SELFPAY ==
[2024-11-10] VITALS (28 sets, daily range): BP systolic 115–135; BP diastolic 58–75; PULSE 63–85; RESP 14–24; TEMP 36.6; O2SAT 93–98; BMI 30.7
--- NOTE | 2024-11-10 17:14 | ED.FALL ---
HPI - Fall <Nadinechari Peraza DO - Last Filed: 11/12/24 07:36> General Chief Complaint: Trauma Stated Complaint: fall, feels confused, possbroken finger on lt hand Time Seen by Provider: 11/10/24 17:14 History of Present Illness HPI Narrative: Patient is a 74-year-old male history of type 2 diabetes hyperlipidemia presenting today after mechanical fall. Reports that he was bending over to call a black very line when he fell down a very [place]. He tumbled down possibly lost consciousness. Reports feeling confused afterwards. says that she received a phone call from him asking her where she was. She was able to get to him. He has multiple abrasions and scratches all over his face. Complaining of some right-sided rib pain. No nausea or vomiting but still mildly confused. Not on anticoagulation or antiplatelet medication. Related Data Home Medications Medication Instructions Recorded Confirmed metformin 1,000 mg tablet 1,000 mg PO BID ##0 06/05/12 08/14/24 cetirizine 10 mg tablet (Aller-Joy) 5 mg PO DAILY PRN 01/27/18 08/14/24 mesalamine 800 mg tablet,delayed 1,600 mg PO TID 08/09/18 08/14/24 release (Asacol HD) pioglitazone 30 mg tablet (Actos) 30 mg PO DAILY 08/16/19 08/14/24 travoprost 0.004 % eye drops EYE-BOTH QPM 08/16/19 08/14/24 semaglutide 0.25 mg or 0.5 mg (2 0.5 mg SUBCUT QWEEK 06/15/23 08/14/24 mg/1.5 mL) subcutaneous pen injector empagliflozin 10 mg tablet 10 mg PO DAILY 08/14/24 08/14/24 (Jardiance) Previous Rx's Medication Instructions Recorded atorvastatin 80 mg tablet 80 mg PO HS #30 tabs 12/15/16 Allergies Allergy/AdvReac Type Severity Reaction Status Date / Time No Known Drug Allergies Allergy Verified 11/10/24 17:35 <Mikhail Cervantes MD - Last Filed: 11/11/24 05:30> History of Present Illness HPI Narrative: Patient is a 74-year-old male history of type 2 diabetes hyperlipidemia presenting today after mechanical fall. Reports that he was bending over to call a black very line when he fell down a very [place] their [place]. He tumbled down possibly lost consciousness. Reports feeling confused afterwards. says that she received a phone call from him asking her where she was. She was able to get to him. He has multiple abrasions and scratches all over his face. Complaining of some right-sided rib pain. No nausea or vomiting but still mildly confused. Not on anticoagulation or antiplatelet medication. 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 (~12/29/20) Restless legs syndrome (02/05/11) Lateral epicondylitis (02/15/03) Foot pain (~2003) Mumps (~1953) Measles (~1952) Chicken pox (~1951) Glaucoma (~1989) Ulcerative colitis (~1989) Urticaria Thrombocytopenia (~2007) Hyperlipidemia Hypertension Obstructive sleep apnea of adult (~1993) Surgical History History of lumbar puncture History of inguinal hernia repair (~1968) Family History Grandmother Stroke Mother Diabetes mellitus Grandmother Mental health problem Sister Diabetes mellitus Sister Age: 60 Diabetes mellitus Grandfather Diabetes mellitus Grandfather Cancer Social History marital status: details: (Cindy), no kids, retired [employer] household members: spouse lives independently: Yes caregiver/support person: No housing: house Smoking Status: Never smoker alcohol intake: never substance use type: does not use caffeine: Yes (but minimal; occ diet Pepsi) Type(s) of exercise: walking and bicycling frequency: 3-4 times per week Exam <Nadine Peraza DO - Last Filed: 11/12/24 07:36> Initial Vital Signs Initial Vital Signs: Vital Signs Temperature 98 F 11/10/24 17:05 Pulse Rate 64 11/10/24 17:05 Respiratory Rate 16 11/10/24 17:05 Blood Pressure 132/74 11/10/24 17:05 Pulse Oximetry 97 11/10/24 17:05 Oxygen Delivery Method Room Air 11/10/24 17:05 GENERAL: Alert 74-year-old and in no acute distress. HEENT: Head atraumatic,EOMI, pupils reactive, face symmetric, moist mucous membranes CARDIOVASCULAR: Regular rate and rhythm without murmurs, rubs or gallops. RESPIRATORY: Breath sounds equal bilaterally, no wheezes rales or rhonchi. Tender right rib without paradoxical movement or evidence of trauma ABDOMEN: Soft, nontender. Normoactive bowel sounds all 4 quadrants. No guarding or rebound. EXTREMITIES: Normal range of motion, no clubbing or edema. Neurovascularly intact NEUROLOGICAL: Alert and oriented x4.Normal gait and speech. Cranial nerves II through XII grossly intact. SKIN: Moses little abrasions and scratches the all over face left knee abrasion <Mikhail Cervantes MD - Last Filed: 11/11/24 05:30> Initial Vital Signs Initial Vital Signs: Vital Signs Temperature 98 F 11/10/24 17:05 Pulse Rate 64 11/10/24 17:05 Respiratory Rate 16 11/10/24 17:05 Blood Pressure 132/74 11/10/24 17:05 Pulse Oximetry 97 11/10/24 17:05 Oxygen Delivery Method Room Air 11/10/24 17:05 Procedures <Nadine Peraza DO - Last Filed: 11/12/24 07:36> Nerve Block Nerve Block 1: Local Anesthetic: lidocaine 1% Amount of anesthesia used (mL): 2 Side: left (little finger PIP) Nerve Blocks: digital Procedure Successful: Yes Patient Tolerated Procedure: Well and No complications Orthopedic Joint Reduction Joint #1: Side: left Joint Reduction Location: finger (5th PIP) Local Anesthesia: lidocaine 1% Amount of anesthesic used (mL): 2 Technique used: direct manipulation Post-reduction neuro exam: intact and no change Post-reduction vascular: intact Post Reduction X-Ray Obtained: Yes Post Reduction X-Ray Results: reduced Scores <Nadine Peraza DO - Last Filed: 11/12/24 07:36> [facility] [place] coma scale eye opening: Spontaneous Brandy coma scale verbal response: Confused [place] coma scale motor response: Obey commands [place] coma scale total score: 14 <Mikhail Cervantes MD - Last Filed: 11/11/24 05:30> [facility] [place] coma scale total score: 14 Course <Nadine Peraza DO - Last Filed: 11/12/24 07:36> Orders Ordered: Discontinued Medications Hydrocodone Bitart/Acetaminophen (Hydrocodone/Acet 5/325 Tablet) 1 tab PO NOW ONE Stop: 11/10/24 21:26 Last Admin: 11/10/24 21:37 Dose: 1 tab Documented By: HILDA Hydrocodone Bitart/Acetaminophen (Hydrocodone/Acet 5/325 Prepack) 1 bottle MISC DIRECTED ONE Stop: 11/10/24 21:33 Last Admin: 11/10/24 21:37 Dose: 1 bottle Documented By: HILDA Bacitracin (Bacitracin Oint 0.9 Gm Pckt) 1 applic TOP NOW ONE Stop: 11/10/24 20:27 Last Admin: 11/10/24 20:30 Dose: 1 applic Documented By: HILDA Diphtheria/Tetanus/Acell Pertussis (Tet,Diph,Pertuss(Acell),Vac/Pf 0.5 Ml Syringe) 0.5 ml IM .ONCE ONE Stop: 11/10/24 17:25 Last Admin: 11/10/24 18:33 Dose: 0.5 ml Documented By: LIAT Acetaminophen (Ofirmev) 1,000 mg in 100 mls @ 400 mls/hr IV NOW ONE Stop: 11/10/24 19:20 Last Infusion: 11/10/24 20:10 Dose: Infused Documented By: Admin: 11/10/24 19:24 Dose: 400 mls/hr Documented By: DELMAR Ketorolac Tromethamine (Ketorolac 30 Mg/Ml Vial) 15 mg IV NOW ONE Stop: 11/10/24 19:28 Last Admin: 11/10/24 19:51 Dose: 15 mg Documented By: HENOK Vital Signs Vital signs: Vital Signs - 8 hr 11/10/24 21:30 11/10/24 21:30 11/10/24 21:30 Pulse Rate 79 72 Respiratory Rate 19 18 Blood Pressure 128/67 Pulse Oximetry 96 95 11/10/24 22:44 11/10/24 22:44 Pulse Rate 85 Respiratory Rate Blood Pressure 129/67 Pulse Oximetry 96 <Mikhail Cervantes MD - Last Filed: 11/11/24 05:30> Orders Ordered: Discontinued Medications Hydrocodone Bitart/Acetaminophen (Hydrocodone/Acet 5/325 Tablet) 1 tab PO NOW ONE Stop: 11/10/24 21:26 Last Admin: 11/10/24 21:37 Dose: 1 tab Documented By: HILDA Hydrocodone Bitart/Acetaminophen (Hydrocodone/Acet 5/325 Prepack) 1 bottle MISC DIRECTED ONE Stop: 11/10/24 21:33 Last Admin: 11/10/24 21:37 Dose: 1 bottle Documented By: HILDA Bacitracin (Bacitracin Oint 0.9 Gm Pckt) 1 applic TOP NOW ONE Stop: 11/10/24 20:27 Last Admin: 11/10/24 20:30 Dose: 1 applic Documented By: HILDA Diphtheria/Tetanus/Acell Pertussis (Tet,Diph,Pertuss(Acell),Vac/Pf 0.5 Ml Syringe) 0.5 ml IM .ONCE ONE Stop: 11/10/24 17:25 Last Admin: 11/10/24 18:33 Dose: 0.5 ml Documented By: LIAT Acetaminophen (Ofirmev) 1,000 mg in 100 mls @ 400 mls/hr IV NOW ONE Stop: 11/10/24 19:20 Last Infusion: 11/10/24 20:10 Dose: Infused Documented By: Admin: 11/10/24 19:24 Dose: 400 mls/hr Documented By: DELMAR Ketorolac Tromethamine (Ketorolac 30 Mg/Ml Vial) 15 mg IV NOW ONE Stop: 11/10/24 19:28 Last Admin: 11/10/24 19:51 Dose: 15 mg Documented By: HENOK Vital Signs Vital signs: Vital Signs - 8 hr 11/10/24 21:30 11/10/24 21:30 11/10/24 21:30 Pulse Rate 79 72 Respiratory Rate 19 18 Blood Pressure 128/67 Pulse Oximetry 96 95 11/10/24 22:44 11/10/24 22:44 Pulse Rate 85 Respiratory Rate Blood Pressure 129/67 Pulse Oximetry 96 MDM - Fall <Nadine Peraza, - Last Filed: 11/12/24 07:36> Lab Data 11/10/24 17:24 11/10/24 17:24 Labs: Lab Results 04/26/25 04/26/25 04/26/25 Range/Units 17:24 17:54 20:15 WBC 4.3 L (4.5-11.0) X10^3/uL RBC 5.16 (4.5-5.9) X10^6/uL Hgb 15.8 (13.5-17.5) g/dL Hct 46.6 (41-53) % MCV 90.4 (80-100) fL MCH 30.6 (26-34) PG MCHC 33.9 (30-36) % RDW 14.1 (11.6-14.8) % Plt Count 141 L (150-400) X10^3/uL Neut % (Auto) 63.8 (50-75) % Lymph % (Auto) 21.9 L (25-40) % [place] % (Auto) 10.8 (3-14) % Eos % (Auto) 2.9 (2-4) % Baso % (Auto) 0.6 (0-2) % Neut # (Auto) 2700 (7474-2582) /uL Lymph # (Auto) 900 L (3069-0749) /uL [place] # (Auto) 500 (0-900) /uL Eos # (Auto) 100 (0-450) /uL Baso # (Auto) 0 (0-100) /uL PT 10.7 (9.4-12.5) SECONDS INR 0.9 (0.9-1.3) APTT 30 (25.1-36.5) SECONDS Sodium 141 (137-145) mmol/L Potassium 4.2 (3.4-5.1) mmol/L Chloride 104 (98-107) mmol/L Carbon Dioxide 29 (22-32) mmol/L BUN 23 H (9-20) mg/dL Creatinine 1.05 (0.66-1.25) mg/dL Estimated GFR > 60 (>60) mL/min BUN/Creatinine Ratio 21.9 (6-22) Glucose 177 H (70-99) mg/dL Lactate 1.9 (0.7-2.1) mmol/L Calcium 9.6 (8.4-10.2) mg/dL Total Bilirubin 0.7 (0.2-1.3) mg/dL AST 47 (17-59) IU/L ALT 43 (<50) IU/L Alkaline Phosphatase 102 (38-126) U/L Total Creatine Kinase 331 H (55-170) U/L Troponin I < 0.012 (0.01-0.034) ng/mL Total Protein 7.2 (6.3-8.2) g/dL Albumin 4.5 (3.5-5.0) g/dL Globulin 2.7 (1.7-4.1) g/dL Albumin/Globulin Ratio 1.7 (1.0-2.8) Lipase 315 H (23-300) U/L U Opiates 300ng/mL cut Negative (Negative) Ur Oxycodone Screen Negative (Negative) Urine Methadone Screen Negative (Negative) Ur Barbiturates Screen Negative (Negative) U Tricyclic Antidepress Negative (Negative) Ur Phencyclidine Scrn Negative (Negative) Ur Amphetamines Screen Negative (Negative) U Methamphetamines Scrn Negative (Negative) Ur MDMA Scrn (Ecstasy) Negative (Negative) U Benzodiazepines Scrn Negative (Negative) Urine Cocaine Screen Negative (Negative) U Marijuana (THC) Screen Negative (Negative) Urine pH Normal (Normal) Urine Specific [place] Normal (Normal) Ethyl Alcohol < 10 ( - 10) mg/dL Ur Creatinine Normal (Normal) Blood Type B Positive Antibody Screen Negative Point of Care Testing Glucose POC [address] scan - head: Radiologist's Impression: PROCEDURE: CT HEAD/BRAIN WO CON INDICATIONS: Trauma TECHNIQUE: Noncontrast 4.5 mm thick angled axial sections acquired from the foramen magnum to the vertex, with coronal and sagittal reformats. For radiation dose reduction, the following was used: automated exposure control, adjustment of mA and/or kV according to patient size. COMPARISON: None. FINDINGS: Image quality: Diagnostic. CSF spaces: Basal cisterns are patent. No extra-axial fluid collections. Ventricles are normal in size and shape. Brain: No midline shift. No intracranial mass effect or hemorrhage. [place]-white matter interface is normal. Moderate cerebral and cerebellar volume loss with multifocal white matter chronic ischemic change noted. Atherosclerotic calcification noted associated with cavernous segments of both internal carotid arteries. Skull and face: Calvarium and visualized facial bones are intact, without suspicious lesions. Bilateral intraocular lens replacements noted. Sinuses: Complete left frontal sinus opacification. Mucosal thickening and osseous wall thickening noted involving the left maxillary sinus IMPRESSION: Atrophy and chronic ischemic change without acute hemorrhage or mass effect Chronic left frontal and left maxillary mucosal sinus disease Approved by: Eloy Bee M.D. on 11/10/2024 at 17:26 ECG Data Attestation: I personally reviewed and interpreted this ECG as follows: Prior ECG tracings: available for review Interpretation: Normal sinus rhythm rate 5 [place] interval 182 QRS [address] changes MDM Narrative Medical decision making narrative: MDM CC: Fall Complicating co-morbidities: Diabetes hypertension Data collected from: patient Medical records reviewed: [ ] Differential considered: Atraumatic hemorrhage intracranial hemorrhage concussion Exam documented above, pertinent findings include: Significant facial abrasions left pinky deformity left knee abrasion right rib pain, fast negative Lab Test results independently reviewed as above. Pertinent findings: CBC, WBC 4.3 hemoglobin 15.8 hematocrit 46.6 platelets 141 CMP sodium 141 potassium 4.2 chloride 104 carbon dioxide 29 BUN 23 creatinine 1.0 glucose 177 Lactate 1.9 Troponin negative, CPK 331 Lipase 315 bilirubin AST ALT within normal limits Independently reviewed EKG as above Sinus rhythm no ischemia Imaging studies independently reviewed: CT head atrophy and chronic ischemic change without hemorrhage or mass effect CT cervical spine degenerative disc disease and arthropathy CT chest abdomen and pelvis Hand x-ray dislocated left little finger Consultations: [ ] Treatments: Reduction of left little finger Re-evaluations: Patient continuing to have repetitive questioning per . Seems confused. Multiple facial abrasions without lacerations. Little finger reduced easily. Discussion: Patient is 74-year-old male presenting today after mechanical fall down a very steep hill/[place]. Complaining of right rib pain. Multiple abrasions all over face. Left little finger dislocated easily reduced. Initial imaging head CT cervical spine CT are negative. Still pending is CT chest abdomen and pelvis. Patient is signed out <Mikhail Cervantes MD - Last Filed: 11/11/24 05:30> Lab Data Labs: Lab Results 11/10/24 11/10/24 11/10/24 Range/Units 17:24 17:54 20:15 WBC 4.3 L (4.5-11.0) X10^3/uL RBC 5.16 (4.5-5.9) X10^6/uL Hgb 15.8 (13.5-17.5) g/dL Hct 46.6 (41-53) % MCV 90.4 (80-100) fL MCH 30.6 (26-34) PG MCHC 33.9 (30-36) % RDW 14.1 (11.6-14.8) % Plt Count 141 L (150-400) X10^3/uL Neut % (Auto) 63.8 (50-75) % Lymph % (Auto) 21.9 L (25-40) % [place] % (Auto) 10.8 (3-14) % Eos % (Auto) 2.9 (2-4) % Baso % (Auto) 0.6 (0-2) % Neut # (Auto) 2700 (2829-5259) /uL Lymph # (Auto) 900 L (2152-4193) /uL [place] # (Auto) 500 (0-900) /uL Eos # (Auto) 100 (0-450) /uL Baso # (Auto) 0 (0-100) /uL PT 10.7 (9.4-12.5) SECONDS INR 0.9 (0.9-1.3) APTT 30 (25.1-36.5) SECONDS Sodium 141 (137-145) mmol/L Potassium 4.2 (3.4-5.1) mmol/L Chloride 104 (98-107) mmol/L Carbon Dioxide 29 (22-32) mmol/L BUN 23 H (9-20) mg/dL Creatinine 1.05 (0.66-1.25) mg/dL Estimated GFR > 60 (>60) mL/min BUN/Creatinine Ratio 21.9 (6-22) Glucose 177 H (70-99) mg/dL Lactate 1.9 (0.7-2.1) mmol/L Calcium 9.6 (8.4-10.2) mg/dL Total Bilirubin 0.7 (0.2-1.3) mg/dL AST 47 (17-59) IU/L ALT 43 (<50) IU/L Alkaline Phosphatase 102 (38-126) U/L Total Creatine Kinase 331 H (55-170) U/L Troponin I < 0.012 (0.01-0.034) ng/mL Total Protein 7.2 (6.3-8.2) g/dL Albumin 4.5 (3.5-5.0) g/dL Globulin 2.7 (1.7-4.1) g/dL Albumin/Globulin Ratio 1.7 (1.0-2.8) Lipase 315 H (23-300) U/L U Opiates 300ng/mL cut Negative (Negative) Ur Oxycodone Screen Negative (Negative) Urine Methadone Screen Negative (Negative) Ur Barbiturates Screen Negative (Negative) U Tricyclic Antidepress Negative (Negative) Ur Phencyclidine Scrn Negative (Negative) Ur Amphetamines Screen Negative (Negative) U Methamphetamines Scrn Negative (Negative) Ur MDMA Scrn (Ecstasy) Negative (Negative) U Benzodiazepines Scrn Negative (Negative) Urine Cocaine Screen Negative (Negative) U Marijuana (THC) Screen Negative (Negative) Urine pH Normal (Normal) Urine Specific [place] Normal (Normal) Ethyl Alcohol < 10 ( - 10) mg/dL Ur Creatinine Normal (Normal) Blood Type B Positive Antibody Screen Negative Point of Care Testing Glucose POC [address] cervical spine: Radiologist's Impression: [address] [address] [address] Scan Report Signed Patient: Mauricio Osei MR#: [id number] : 1950 Acct:[id number] Age/Sex: 74 / M Date of Service: 11/10/24 Loc: ED Accession Number: [id number] Procedure: CT cervical spine wo con Ordering Provider: Nadine Peraza D.O. PROCEDURE: CT CERVICAL SPINE WO CON INDICATIONS: Trauma TECHNIQUE: Noncontrast 3 mm thick sections acquired from the skull base to the T4 level. Sagittal and coronal reformats were then constructed. For radiation dose reduction, the following was used: automated exposure control, adjustment of mA and/or kV according to patient size. COMPARISON: None. FINDINGS: Image quality: Excellent. Bones: No fractures or dislocations. Visualized superior ribs are intact. Degenerative disc space narrowing and mild arthropathy noted in the mid to lower cervical spine Soft tissues: Prevertebral soft tissues are normal in thickness. No paravertebral hematomas. No apical pneumothoraces. IMPRESSION: Degenerative disc disease and arthropathy without evidence of fracture or traumatic malalignment Approved by: Eloy Bee M.D. on 11/10/2024 at 17:31 CT chest abdomen and pelvis trauma protocol: Radiologist's Impression: [address] [address] [address] Scan Report Signed Patient: Mauricio Osei MR#: [id number] : 1950 Acct:[id number] Age/Sex: 74 / M Date of Service: 11/10/24 Loc: ED Accession Number: [id number] Procedure: CT Trauma Chest Abdomen Pelvis Ordering Provider: Nadine Peraza D.O. PROCEDURE: CT TRAUMA CHEST ABDOMEN PELVIS INDICATIONS: trauma, fall TECHNIQUE: After the administration of intravenous contrast, 5 mm thick sections acquired from the lung apices to the symphysis. 2.5 mm thick coronal and sagittal reformats were acquired. Additional 7 mm thick coronal maximum intensity projection (MIP) reformats acquired through the lungs. Optional 10-minute delayed imaging may be performed from the kidneys to the bladder. For radiation dose reduction, the following was used: automated exposure control, adjustment of mA and/or kV according to patient size. COMPARISON: None. FINDINGS: Image quality: Diagnostic. CHEST: Lower Neck: No enlarged lymph nodes. Thyroid: No thyroid nodules which require sonographic evaluation. Axillae: No enlarged lymph nodes. Chest Wall: No subcutaneous gas. Lungs and Pleura: No pulmonary contusions or lacerations. No acute airspace opacities. No pneumothorax or hemothorax. Mediastinum: No mediastinal hematomas. Heart size is normal. No pericardial effusion. Thoracic aorta and pulmonary arteries demonstrate normal size and enhancement. No mediastinal or hilar adenopathy. Esophagus is normal in caliber. No hiatal hernia. ABDOMEN: Liver: No lacerations. Gallbladder: Cholelithiasis. No pericholecystic inflammatory change. Biliary ducts: No biliary dilation. Pancreas: Homogenous enhancement. Spleen: Homogenous enhancement without laceration or hematoma. Adrenal Glands: Symmetric enhancement. Kidneys and Ureters: Symmetric enhancement. No hydronephrosis. No solid mass. No complex renal cystic lesion which requires follow up. Stomach and Bowel: Normal colonic caliber, without significant wall thickening. Peritoneum: No abnormal intraperitoneal fluid. No free air. Ventral Wall: No hernia. Abdominal Nodes: No retroperitoneal or mesenteric adenopathy by size criteria. Vessels: Aorta and inferior vena cava are normal in size. PELVIS: Pelvic Organs: Hypertrophic prostate elevates the bladder floor. Bladder: Normal thickness. Pelvic Nodes: No enlarged lymph nodes. Miscellaneous: No inguinal hernias are seen. Bones: Pelvic ring and hip joints appear intact. No displaced rib fractures. degenerative disc disease and arthropathy throughout the thoracolumbar spine IMPRESSION: No evidence of traumatic injury to the chest, abdomen or pelvis. Incidental cholelithiasis Approved by: Eloy Bee M.D. on 11/10/2024 at 18:07 Extremity x-ray #1: Radiologist's Impression: [address] [address] XRay Report Signed Patient: Mauricio Osei MR#: [id number] : 1950 Acct:[id number] Age/Sex: 74 / M Date of Service: 11/10/24 Loc: ED Accession Number: [id number] Procedure: XR hand LT min 3V Ordering Provider: Nadine Peraza D.O. PROCEDURE: XR HAND LT MIN 3V INDICATIONS: little finger deformity TECHNIQUE: 3 views of the hand(s) acquired. COMPARISON: None. FINDINGS: Bones: 5th PIP dislocation with dorsal dislocation and foreshortening Soft tissues: No suspicious soft tissue calcifications. IMPRESSION: Fifth PIP dorsal dislocation with foreshortening. No fracture. Approved by: Eloy Bee M.D. on 11/10/2024 at 18:22 Extremity x-ray #3: Radiologist's Impression: Close Face CT 11/10/24 Finger X-Ray (Signed) Bill Gauthier - 11/10/24 Hand X-Ray (Signed) [place] - 11/10/[address] (Signed) [place] - 11/10/[address] (Signed) [place] - 11/10/24 Chest/Abdomen/Pelvis CT (Signed) [place] - 11/10/24 Launch?Image [address] [address] XRay Report Signed Patient: Mauricio Osei MR#: [id number] : 1950 Acct:[id number] Age/Sex: 74 / M Date of Service: 11/10/24 Loc: ED Accession Number: [id number] Procedure: XR finger LT min 2V Ordering Provider: Nadine ePraza D.O. PROCEDURE: XR FINGER LT MIN 2V INDICATIONS: post reduction TECHNIQUE: PA hand, 2 views of the small finger acquired. COMPARISON: [facility], , XR HAND LT MIN 3V, 11/10/2024, 17:56. FINDINGS: Bones: Interval reduction of the 5th proximal interphalangeal joint with presybeterian of normal alignment. No definite fracture is seen. Soft tissues: No suspicious soft tissue calcifications. Soft tissue edema in the small finger. IMPRESSION: Interval reduction of the 5th proximal interphalangeal joint with presybeterian of normal alignment. No definite osseous fracture. Approved by: Bill Gauthier M.D. on 11/10/2024 at 19:55 CT facial series noncontrast: Radiologist's Impression: [place] [address] CT Scan Report Signed Patient: Mauricio Osei MR#: [id number] : 1950 Acct:[id number] Age/Sex: 74 / M Date of Service: 11/10/24 Loc: ED Accession Number: [id number] Procedure: CT facial bones wo con Ordering Provider: Mikhail Cervantes MD PROCEDURE: CT FACIAL BONES WO CON INDICATIONS: fell down today [MEB] TECHNIQUE: Noncontrast 2.5 mm thick axial images acquired from the mandible through the frontal sinuses, with coronal and sagittal reformatting. For radiation dose reduction, the following was used: automated exposure control, adjustment of mA and/or kV according to patient size. COMPARISON: [facility], CT, CT HEAD/BRAIN WO CON, 11/10/2024, 17:33. FINDINGS: Image quality: Excellent. Bones and teeth: Orbital owen are intact. Sinus owen show no fracture or deformity. Nasal bones and septum are intact. Visualized portions of the mandible demonstrate no fractures or subluxation. Zygomatic arches are intact. Pterygoid plates are intact. Visualized portions of the skull base and auditory canals are intact. Sinuses: Mild mucosal thickening in the left maxillary sinus with chronic thickening of the sinus wall. Opacified left frontal sinus. Mastoid air cells are aerated. Soft tissues: Mild left facial subcutaneous edema. No enlarged lymph nodes. No soft tissue lacerations or debris. Vascular: Visualized vascular structures appear normal in the absence of contrast. Bony vascular foramina and canals are intact. IMPRESSION: 1. Mild left facial subcutaneous edema. No acute facial fracture. 2. Paranasal sinus disease. Approved by: Bill Gauthier M.D. on 11/10/2024 at 20:06 MDM Narrative Medical decision making narrative: MDM CC: Fall Complicating co-morbidities: Diabetes hypertension Data collected from: patient Medical records reviewed: [ ] Differential considered: Atraumatic hemorrhage intracranial hemorrhage concussion Exam documented above, pertinent findings include: Significant facial abrasions left pinky deformity left knee abrasion right rib pain, fast negative Lab Test results independently reviewed as above. Pertinent findings: CBC, WBC 4.3 hemoglobin 15.8 hematocrit 46.6 platelets 141 CMP sodium 141 potassium 4.2 chloride 104 carbon dioxide 29 BUN 23 creatinine 1.0 glucose 177 Lactate 1.9 Troponin negative, CPK 331 Lipase 315 bilirubin AST ALT within normal limits Independently reviewed EKG as above Sinus rhythm no ischemia Imaging studies independently reviewed: CT head atrophy and chronic ischemic change without hemorrhage or mass effect CT cervical spine degenerative disc disease and arthropathy CT chest abdomen and pelvis Hand x-ray dislocated left little finger Consultations: [ ] Treatments: Reduction of left little finger Re-evaluations: Patient continuing to have repetitive questioning per . Seems confused. Multiple facial abrasions without lacerations. Little finger reduced easily. Discussion: Patient is 74-year-old male presenting today after mechanical fall down a very steep hill/jessica. Complaining of right rib pain. Multiple abrasions all over face. Left little finger dislocated easily reduced. Initial imaging head CT cervical spine CT are negative. Still pending is CT chest abdomen and pelvis. Patient is signed out 11/10/24, 1900Billy. Sign-out from Dr. Peraza. Trauma imaging reports are pending. 74-year-old male fell down a jessica embankment multiple feet, with abrasions to the face, not on blood thinner medications, left pinky finger deformity closed, no LOC, no focal motor deficits, initial confusion. Hemodynamically stable. POCUS trauma FAST exam negative. CT head, face, cervical spine, chest, abdomen/pelvis trauma protocol imaging performed. He had left closed pinky finger dislocation without fracture, reduced by Dr. Peraza, post reduction XRay pending. CT results pending. Assumed care. CT head negative, see radiology report. CT cervical spine shows degenerative changes, no acute changes. See radiology report. CT chest abdomen and pelvis, no acute changes, incidental cholelithiasis noted. See radiology report. CT face showed soft tissue changes, no fractures, no foreign bodies mentioned. See radiology report. Plain radiograph left pinky finger showed phalangeal dislocation, no fracture, reduced on post reduction x-ray. See radiology reports. Finger splint applied. Antibiotic ointment applied to facial abrasions. Patient was able to take oral fluids, ambulated. Patient would like to go home. Home with family. We discussed earlier confusion that seems to have cleared. Consider concussion in context of closed head injury. Advised cognitive rest and physical rest for the next 2-3 days, and then recheck by PCP to see if he can drive and do other activities at that time. They expressed understanding. Home with family. Discharge Plan Departure Patient Disposition: Home Clinical Impression: Closed dislocation of left little finger, Fall, Abrasion of face, Contusion of face, Concussion Activity Restrictions/Additional Instructions: Fall down a decline jessica, abrasions to the face. CT trauma scanning included brain, cervical spine of the neck, face, chest, abdomen, pelvis. You had dislocation changes of your left pinky finger that was reduced, no fracture on x-rays noted, placed in a finger splint to wear for the next [address] over facial abrasion wounds. You were able to take oral fluids and ambulate in the department. You had some initial confusion concerns as expressed by your initial provider, apparently this is improved, you feel less confused, and your family members feel like you are less confused. Consider concussion. Consider cognitive rest and physical rest for the next 2-3 days. Reassess with your regular doctor advised to clinic to see if you can do driving and other activities. Return earlier to this/nearest emergency department for any change worsening symptoms or any concerns prior. Prescriptions: No Action cetirizine [Aller-Joy] 10 mg tablet 5 mg PO DAILY PRN metformin 1,000 MG tablet 1,000 mg PO BID Qty: 0 atorvastatin 80 MG tablet 80 mg PO HS Qty: 30 11RF mesalamine [Asacol HD] 800 mg tablet,delayed release (DR/EC) 1,600 mg PO TID travoprost 0.004 % drops EYE-BOTH QPM pioglitazone [Actos] 30 mg tablet 30 mg PO DAILY Jardiance 10 mg tablet 10 mg PO DAILY semaglutide 0.25 mg or 0.5 mg(2 mg/1.5 mL) pen injector 0.5 mg SUBCUT QWEEK Patient Comments: INJECT 0.5MG UNDER THE SKIN ONCE A WEEK Referrals: Geovani Lombardi MD [Primary Care Provider] - Stand Alone Forms: Patient Portal/API/Survey
--- NOTE | 2024-11-10 17:15 | EKG_ITS ---
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
--- NOTE | 2024-11-10 17:24 | DI.CT.S_ITS ---
PROCEDURE: CT TRAUMA CHEST ABDOMEN PELVIS INDICATIONS: trauma, fall TECHNIQUE: After the administration of intravenous contrast, 5 mm thick sections acquired from the lung apices to the symphysis. 2.5 mm thick coronal and sagittal reformats were acquired. Additional 7 mm thick coronal maximum intensity projection (MIP) reformats acquired through the lungs. Optional 10-minute delayed imaging may be performed from the kidneys to the bladder. For radiation dose reduction, the following was used: automated exposure control, adjustment of mA and/or kV according to patient size. COMPARISON: None. FINDINGS: Image quality: Diagnostic. CHEST: Lower Neck: No enlarged lymph nodes. Thyroid: No thyroid nodules which require sonographic evaluation. Axillae: No enlarged lymph nodes. Chest Wall: No subcutaneous gas. Lungs and Pleura: No pulmonary contusions or lacerations. No acute airspace opacities. No pneumothorax or hemothorax. Mediastinum: No mediastinal hematomas. Heart size is normal. No pericardial effusion. Thoracic aorta and pulmonary arteries demonstrate normal size and enhancement. No mediastinal or hilar adenopathy. Esophagus is normal in caliber. No hiatal hernia. ABDOMEN: Liver: No lacerations. Gallbladder: Cholelithiasis. No pericholecystic inflammatory change. Biliary ducts: No biliary dilation. Pancreas: Homogenous enhancement. Spleen: Homogenous enhancement without laceration or hematoma. Adrenal Glands: Symmetric enhancement. Kidneys and Ureters: Symmetric enhancement. No hydronephrosis. No solid mass. No complex renal cystic lesion which requires follow up. Stomach and Bowel: Normal colonic caliber, without significant wall thickening. Peritoneum: No abnormal intraperitoneal fluid. No free air. Ventral Wall: No hernia. Abdominal Nodes: No retroperitoneal or mesenteric adenopathy by size criteria. Vessels: Aorta and inferior vena cava are normal in size. PELVIS: Pelvic Organs: Hypertrophic prostate elevates the bladder floor. Bladder: Normal thickness. Pelvic Nodes: No enlarged lymph nodes. Miscellaneous: No inguinal hernias are seen. Bones: Pelvic ring and hip joints appear intact. No displaced rib fractures. degenerative disc disease and arthropathy throughout the thoracolumbar spine IMPRESSION: No evidence of traumatic injury to the chest, abdomen or pelvis. Incidental cholelithiasis Approved by: Eloy Bee M.D. on 11/10/2024 at 18:07
--- NOTE | 2024-11-10 17:26 | DI.CT.S_ITS ---
PROCEDURE: CT CERVICAL SPINE WO CON INDICATIONS: Trauma TECHNIQUE: Noncontrast 3 mm thick sections acquired from the skull base to the T4 level. Sagittal and coronal reformats were then constructed. For radiation dose reduction, the following was used: automated exposure control, adjustment of mA and/or kV according to patient size. COMPARISON: None. FINDINGS: Image quality: Excellent. Bones: No fractures or dislocations. Visualized superior ribs are intact. Degenerative disc space narrowing and mild arthropathy noted in the mid to lower cervical spine Soft tissues: Prevertebral soft tissues are normal in thickness. No paravertebral hematomas. No apical pneumothoraces. IMPRESSION: Degenerative disc disease and arthropathy without evidence of fracture or traumatic malalignment Approved by: Eloy Bee M.D. on 11/10/2024 at 17:31
--- NOTE | 2024-11-10 17:26 | DI.CT.S_ITS ---
PROCEDURE: CT HEAD/BRAIN WO CON INDICATIONS: Trauma TECHNIQUE: Noncontrast 4.5 mm thick angled axial sections acquired from the foramen magnum to the vertex, with coronal and sagittal reformats. For radiation dose reduction, the following was used: automated exposure control, adjustment of mA and/or kV according to patient size. COMPARISON: None. FINDINGS: Image quality: Diagnostic. CSF spaces: Basal cisterns are patent. No extra-axial fluid collections. Ventricles are normal in size and shape. Brain: No midline shift. No intracranial mass effect or hemorrhage. [place]-white matter interface is normal. Moderate cerebral and cerebellar volume loss with multifocal white matter chronic ischemic change noted. Atherosclerotic calcification noted associated with cavernous segments of both internal carotid arteries. Skull and face: Calvarium and visualized facial bones are intact, without suspicious lesions. Bilateral intraocular lens replacements noted. Sinuses: Complete left frontal sinus opacification. Mucosal thickening and osseous wall thickening noted involving the left maxillary sinus IMPRESSION: Atrophy and chronic ischemic change without acute hemorrhage or mass effect Chronic left frontal and left maxillary mucosal sinus disease Approved by: Eloy Bee M.D. on 11/10/2024 at 17:26
[2024-11-10 17:36] LABS: Add Manual Diff / Slide Review NO; Basophils Absolute Auto 0 /uL (0-100); Basophils Percent Auto 0.6 % (0-2); Eosinophils Absolute Auto 100 /uL (0-450); Eosinophils Percent Auto 2.9 % (2-4); Hematocrit 46.6 % (41-53); Hemoglobin 15.8 g/dL (13.5-17.5); Lymphocytes Absolute Auto 900 /uL (1100-4500); Lymphocytes Percent Auto 21.9 % (25-40); Mean Corpuscular HGB Conc 33.9 % (30-36); Mean Corpuscular Hemoglobin 30.6 PG (26-34); Mean Corpuscular Volume 90.4 fL (80-100); Monocytes Absolute Auto 500 /uL (0-900); Monocytes Percent Auto 10.8 % (3-14); Neutrophils Absolute Auto 2700 /uL (1500-7000); Neutrophils Percent Auto 63.8 % (50-75); Platelet Count 141 X10^3/uL (150-400); Red Blood Cell Count 5.16 X10^6/uL (4.5-5.9); Red Cell Distribution Width 14.1 % (11.6-14.8); White Blood Cell Count 4.3 X10^3/uL (4.5-11.0)
[2024-11-10 17:45] LABS: INR 0.9 (0.9-1.3); Prothrombin Time 10.7 SECONDS (9.4-12.5)
[2024-11-10 17:48] LABS: PTT Partial Thromboplastin Tim 30 SECONDS (25.1-36.5)
[2024-11-10 17:49] LABS: Lactate (Lactic Acid) 1.9 mmol/L (0.7-2.1)
[2024-11-10 17:50] LABS: Alanine Aminotransferase 43 IU/L (<50); Albumin 4.5 g/dL (3.5-5.0); Albumin Globulin Ratio 1.7 (1.0-2.8); Alkaline Phosphatase 102 U/L (38-126); Aspartate Aminotransferase 47 IU/L (17-59); BUN Creatinine Ratio 21.9 (6-22); Bilirubin Total 0.7 mg/dL (0.2-1.3); Blood Urea Nitrogen 23 mg/dL (9-20); Calcium 9.6 mg/dL (8.4-10.2); Carbon Dioxide 29 mmol/L (22-32); Chloride 104 mmol/L (98-107); Estimated Glomerular Filt Rate > 60 mL/min (>60); Ethanol (ETOH) < 10 mg/dL; Globulin 2.7 g/dL (1.7-4.1); Glucose 177 mg/dL (70-99); HEMOLYSIS 20 (0-50); Lipase 315 U/L (23-300); Potassium 4.2 mmol/L (3.4-5.1); Sodium 141 mmol/L (137-145); Total Protein 7.2 g/dL (6.3-8.2)
--- NOTE | 2024-11-10 17:55 | DI.RAD.S_ITS ---
PROCEDURE: XR HAND LT MIN 3V INDICATIONS: little finger deformity TECHNIQUE: 3 views of the hand(s) acquired. COMPARISON: None. FINDINGS: Bones: 5th PIP dislocation with dorsal dislocation and foreshortening Soft tissues: No suspicious soft tissue calcifications. IMPRESSION: Fifth PIP dorsal dislocation with foreshortening. No fracture. Approved by: Eloy Bee M.D. on 11/10/2024 at 18:22
[2024-11-10 18:29] LABS: Creatine Kinase 331 U/L (55-170)
[2024-11-10] MEDS: TET,DIPH,PERTUSS(ACELL),VAC/PF 0.5 ML SYRINGE IM (18:33)
[2024-11-10 18:42] LABS: Troponin I < 0.012 ng/mL (0.01-0.034)
--- NOTE | 2024-11-10 19:05 | DI.RAD.S_ITS ---
PROCEDURE: XR FINGER LT MIN 2V INDICATIONS: post reduction TECHNIQUE: PA hand, 2 views of the small finger acquired. COMPARISON: [facility], , XR HAND LT MIN 3V, 11/10/2024, 17:56. FINDINGS: Bones: Interval reduction of the 5th proximal interphalangeal joint with orthodoxy of normal alignment. No definite fracture is seen. Soft tissues: No suspicious soft tissue calcifications. Soft tissue edema in the small finger. IMPRESSION: Interval reduction of the 5th proximal interphalangeal joint with orthodoxy of normal alignment. No definite osseous fracture. Approved by: Bill Gauthier M.D. on 11/10/2024 at 19:55
--- NOTE | 2024-11-10 19:10 | DI.CT.S_ITS ---
PROCEDURE: CT FACIAL BONES WO CON INDICATIONS: fell down today [MEB] TECHNIQUE: Noncontrast 2.5 mm thick axial images acquired from the mandible through the frontal sinuses, with coronal and sagittal reformatting. For radiation dose reduction, the following was used: automated exposure control, adjustment of mA and/or kV according to patient size. COMPARISON: [facility], CT, CT HEAD/BRAIN WO CON, 11/10/2024, 17:33. FINDINGS: Image quality: Excellent. Bones and teeth: Orbital owen are intact. Sinus owen show no fracture or deformity. Nasal bones and septum are intact. Visualized portions of the mandible demonstrate no fractures or subluxation. Zygomatic arches are intact. Pterygoid plates are intact. Visualized portions of the skull base and auditory canals are intact. Sinuses: Mild mucosal thickening in the left maxillary sinus with chronic thickening of the sinus wall. Opacified left frontal sinus. Mastoid air cells are aerated. Soft tissues: Mild left facial subcutaneous edema. No enlarged lymph nodes. No soft tissue lacerations or debris. Vascular: Visualized vascular structures appear normal in the absence of contrast. Bony vascular foramina and canals are intact. IMPRESSION: 1. Mild left facial subcutaneous edema. No acute facial fracture. 2. Paranasal sinus disease. Approved by: Bill Gauthier M.D. on 11/10/2024 at 20:06
[2024-11-10] MEDS: ACETAMINOPHEN IV 1,000 MG/100 ML VIAL 400 MG IV (19:24)
[2024-11-10] MEDS: KETOROLAC 30 MG/ML VIAL 15 MG IV (19:51)
[2024-11-10 20:29] LABS: Ur Creatinine Normal (Normal)
[2024-11-10 20:30] LABS: Ur Specific Gravity Normal (Normal); Urine Amphetamines Negative (Negative); Urine Barbiturates Negative (Negative); Urine Benzodiazepines Negative (Negative); Urine Cocaine Negative (Negative); Urine MDMA Negative (Negative); Urine Methadone Negative (Negative); Urine Opiates Negative (Negative); Urine Oxycodone Negative (Negative); Urine Phencyclidine Negative (Negative); Urine THC Negative (Negative); Urine Tricyclic Antidepressant Negative (Negative); Urine pH Normal (Normal)
[2024-11-10] MEDS: BACITRACIN OINT 0.9 GM PCKT 1 APPLIC TOP (20:30)
[2024-11-10] MEDS: HYDROCODONE/ACET 5/325 PREPACK 1 BOTTLE MISC (21:37)
[2024-11-10] MEDS: HYDROCODONE/ACET 5/325 TABLET 1 TAB PO (21:37)
--- NOTE | 2024-11-10 21:40 | PC.NURSE ---
walked with little stand-by assist to restroom, only reporting side pain RN aware
== END 2024-11-10 22:49 | disposition home or self-care (01) ==
PROVIDERS: Emergency Medicine; Emergency Provider Emergency Medicine; PCP Internal Medicine
DX: S63.287A Dislocation of proximal interphalangeal joint of left little finger, initial encounter (principal); S00.81XA Abrasion of other part of head, initial encounter; S00.83XA Contusion of other part of head, initial encounter; S06.0X0A Concussion without loss of consciousness, initial encounter; R07.81 Pleurodynia; W17.81XA Fall down embankment (hill), initial encounter; Z23 Encounter for immunization
CPT/HCPCS: 26770; 29130; 36415; 64450; 70450; 70486; 71275; 72125; 73130; 73140; 74177; 80053; 80305; 80320; 82550; 82962; 83605; 83690; 84484; 85025; 85610; 85730; 86850; 86900; 86901; 90471; 93005; 93010; 96365; 96375; 99284; 99285; 90715; J0131; J1885; Q9967

== ENCOUNTER → 2024-11-14 10:21 | Outpatient (CLI) | payer MEDICARE, SELFPAY ==
--- NOTE | 2024-11-14 10:22 | DI.CT.S_ITS ---
PROCEDURE: CT HEAD/BRAIN WO CON INDICATIONS: r/o subdural hematoma TECHNIQUE: Noncontrast 4.5 mm thick angled axial sections acquired from the foramen magnum to the vertex, with coronal and sagittal reformats. For radiation dose reduction, the following was used: automated exposure control, adjustment of mA and/or kV according to patient size. COMPARISON: [facility], CT, CT HEAD/BRAIN WO CON, 11/10/2024, 17:33. FINDINGS: Image quality: Diagnostic. CSF spaces: Basal cisterns are patent. No extra-axial fluid collections. The ventricles are symmetric in size and shape. Brain: No intracranial bleeds or mass effect. There is cerebral volume loss, with resultant ventricular and sulcal prominence. There are periventricular and deep white matter chronic small vessel ischemic changes. There is intracranial internal carotid artery atherosclerosis. Skull and face: Calvarium and visualized facial bones appear intact, without suspicious lesions. Sinuses: Small air-fluid level, left maxillary sinus. This is similar to previous. Complete opacification left frontal sinus and partial opacification anterior left ethmoids. IMPRESSION: No acute intracranial pathology. Chronic sinus disease. Dictated by: Almas Patrick M.D. on 11/14/2024 at 11:16 Approved by: Almas Patrcik M.D. on 11/14/2024 at 11:18
== END ==
PROVIDERS: PCP Internal Medicine; Referring Provider Internal Medicine; Visit Provider Internal Medicine
DX: S06.0XAA Concussion with loss of consciousness status unknown, initial encounter (principal); S00.81XA Abrasion of other part of head, initial encounter; I65.29 Occlusion and stenosis of unspecified carotid artery; J32.8 Other chronic sinusitis; X58.XXXA Exposure to other specified factors, initial encounter
CPT/HCPCS: 70450